=== PATIENT | female | born 1990 | race Caucasian/White ===

== ENCOUNTER 2022-08-02 09:20 | Inpatient (IN) ==
[2022-08-02] MEDS ORDERED: DINOPROSTONE 10 MG INSERT PV ONE (09:40)
[2022-08-02] MEDS ORDERED: OXYTOCIN 30 UNITS/500 ML BAG IV PRN (09:40)
[2022-08-02] MEDS ORDERED: LIDOCAINE 1% LOCAL 20 ML VIAL INFIL PRN (09:40)
[2022-08-02] MEDS: LACTATED RINGER'S 1,000 ML IV PRN ×4 (10:26→23:24)
--- NOTE | 2022-08-02 10:26 | History & Physical Report ---
Date of Service August 02, 2022 Assessment & Plan (1) Elective induction of labor planned: Plan: 31-year-old at 39 weeks and 2 days of gestation scheduled for induction of labor for estimated weight of 3700 g, Vital signs stable afebrile, heart rate reassuring, GBS negative, Plan to admit, monitor, labs, Cervidil for cervical ripening, Patient understands expect during induction, All questions were answered. (2) Third trimester : (3) Term : Admission and Anticipated Discharge Date Admission Date: August 02, 2022 History of Present Illness Primary Care Provider: Katelin Orellana MD Patient is a 31-year-old -0-0-1 at 39 weeks and 2 days of gestation who was scheduled for induction of labor at term due to impending macrosomia. Estimated weight measuring over 90th percentile in second trimester, last ultrasound on July 28 estimated 3700 g infant. She passed glucose tolerance test. Patient denies contractions, leakage of fluid, vaginal bleeding. She reports good movements. Her has been uncomplicated, GBS negative. Denies medical problems. Allergies Allergy/AdvReac Type Severity Reaction Status Date / Time No Known Allergies Allergy Verified 02/07/22 15:34 Home Medications Medication Instructions Recorded Confirmed Type vit 168-iron 27 mg-folic cap PO 02/07/22 02/07/22 History acid 800 mcg-omega3 235 mg capsule (One-A-Day -1) nirmatrelvir 300 mg (150 mg See Rx Instructions PO .COMPLEX 03/15/22 Rx x2)-ritonavir 100 mg tablet,dose #30 tabs pack(EUA) (Paxlovid) Patient History Surgical History S/P wisdom tooth extraction Family History Family/Other Breast cancer Mother Diabetes Denies family history of Ovarian cancer Prostate cancer Myocardial infarction Colorectal cancer Social History Smoking Status: Never smoker Second Hand Exposure: No; Do You Dip or Chew Tobacco: No; Tobacco Cessation Education Requested by Patient: No Hx Alcohol Use: No Hx Substance Use: No Preferred Language: Citizen Of [place] Communication Ability: Effective Pecan Picker Required: No Beliefs That Will Affect Care: None marital status: Current Living Situation: Spouse Current Living Situation Comment: Vijay 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 have: 0 Other Information That Helps Us Care for You: No Feels Safe at Home: Yes Safety Concerns: Feels Safe At This Time Childhood Exposure to Second-Hand Smoke: No Dental Care, Regularly: Yes Physical Activity Frequency: 3-4 Times per Week Seatbelt Use: always Sunscreen Use: Yes Assistive Devices: Glasses INFANT NANNY History Denies history of STDs, including chlamydia, gonorrhea, herpes. Review of Systems as per Subjective / HPI Physical Exam Constitutional: WD/WN, vitals as above Gastrointestinal (Abdomen): normal bowel sounds, soft, nontender, no hepatosplenomegaly (Gravid, Edward 8-9 pounds) Genitourinary: normal external appearance OB Exam Abdomen: + vertex Manual OB Exam: + cervical dilation 1 cm, + cervical effacement 30% and + station -2 OB Exam Monitor Tracing: + external uterine monitor used and + category I Results & Data ([facility]) Vital Signs (Past 12 Hours) Vital Signs Temp Pulse Resp BP 08/02/22 09:54 100 H 117/69 08/02/22 09:30 36.9 C 100 H 18 117/69
[2022-08-02 10:42] LABS: Hematocrit (blood only) 36.9 % (34.1-44.9); Hemoglobin 13.1 g/dl (12.0-16.0); Mean Corpuscular Hemoglobin 33.1 pg (25.0-34.0); Mean Corpuscular Hgb Conc 35.5 g/dL (32.0-36.0); Mean Corpuscular Volume 93.2 fL (80.0-100.0); Mean Platelet Volume 9.7 fL (9.4-12.3); Platelet Count 211 K/uL (130-400); RDW Standard Deviation 41.4 fL (36.4-46.3); Red Blood Count 3.96 M/uL (3.93-5.22); White Blood Count 11.46 K/ul (4.8-10.8)
[2022-08-02] MEDS ORDERED: BUTORPHANOL TARTRATE 1 MG/ML VIAL IV PRN (10:48)
[2022-08-02] MEDS ORDERED: TERBUTALINE SULFATE 1 MG/ML VIAL SQ ONE (13:54)
--- NOTE | 2022-08-02 13:58 | Obstetrical Progress Note ---
Date of Service August 02, 2022 Assessment & Plan Admission and Anticipated Discharge Date Admission Date: August 02, 2022 Subjective Patient is seen. She is standing with monitors on. Had hyperstimulation with Cervidil and it was taken out, ginve IVF bolus Still has ctxs q 0.5 to 1 min, patient feels them all. FHR categ I Terbutaline once Continue to monitor closely. Results & Data ([facility]) Vital Signs (Past 12 Hours) Vital Signs Temp Pulse Resp BP 08/02/22 12:02 97 H 114/66 08/02/22 10:40 94 H 116/68 08/02/22 09:54 100 H 117/69 08/02/22 09:30 36.9 C 100 H 18 117/69
--- NOTE | 2022-08-02 16:40 | Obstetrical Progress Note ---
Date of Service August 02, 2022 Assessment & Plan Admission and Anticipated Discharge Date Admission Date: August 02, 2022 Subjective Patient is reevaluated She ate dinner and started to feel ctxs more painful, 6/10 for 20-30 seconds She iss till smiling with them. VE; 2/ 50%/ -2 FHR categ I [place] ctxs q 2-3 min Offered her Stadol but declined, wants to sleep by herself. Results & Data ([facility]) Vital Signs (Past 12 Hours) Vital Signs Temp Pulse Resp BP 08/02/22 14:54 18 08/02/22 14:54 36.6 C 18 08/02/22 12:02 97 H 114/66 08/02/22 10:40 94 H 116/68 08/02/22 09:54 100 H 117/69 08/02/22 09:30 36.9 C 100 H 18 117/69
--- NOTE | 2022-08-02 20:13 | Obstetrical Progress Note ---
Date of Service August 02, 2022 Assessment & Plan Admission and Anticipated Discharge Date Admission Date: August 02, 2022 Subjective Patient had LOF, Nitrazine +, clear VE; 2-3 cm/ 50%/ -2 FHR categ I [place] ctxs q 2-3 min, patient is still smiling with them, does not need pain meds Continue to monitor closely Results & Data ([facility]) Vital Signs (Past 12 Hours) Vital Signs Temp Pulse Resp BP 08/02/22 20:00 18 08/02/22 20:00 36.7 C 18 08/02/22 19:03 18 08/02/22 19:03 36.7 C 18 08/02/22 19:01 96 H 117/69 08/02/22 14:54 18 08/02/22 14:54 36.6 C 18 08/02/22 12:02 97 H 114/66 08/02/22 10:40 94 H 116/68 08/02/22 09:54 100 H 117/69 08/02/22 09:30 36.9 C 100 H 18 117/69
[2022-08-02] MEDS ORDERED: ePHEDrine sulfate 50 MG/ML AMP ONE (21:04)
[2022-08-02] MEDS ORDERED: SODIUM CHLORIDE 0.9% INJ 10 ML VIAL ONE (21:04)
[2022-08-02] MEDS ORDERED: fentaNYL citrate 100 MCG/2 ML VIAL ONE (21:04)
[2022-08-02] MEDS ORDERED: fentaNYL 2MCG/ML ROPIVACAINE 1.25MG/ML 100 ML BAG EPI ONE (21:05)
[2022-08-02] MEDS ORDERED: LIDOCAINE 2%/EPINEPHRINE 1:200,000 20 ML SDV ONE (21:05)
[2022-08-02] MEDS ORDERED: BUPIVACAINE 0.25% 30 ML VIAL ONE (21:05)
--- NOTE | 2022-08-02 21:43 | Anesthesiology Consultation ---
Date of Service August 02, 2022 Assessment & Plan Chart Review Chart Review: Acceptable Risk for Labor Epidural Consults Requested none History Height/Weight Height: 5 ft 3 in Weight: 65.317 kg Allergies Allergy/AdvReac Type Severity Reaction Status Date / Time No Known Allergies Allergy Verified 08/02/22 11:15 Medications Home Medications Medication Instructions Recorded Confirmed Last Taken vit 168-iron 27 mg-folic cap PO 02/07/22 02/07/22 08/02/22 07:00 acid 800 mcg-omega3 235 mg capsule (One-A-Day -1) Active Medications Generic Name Dose Route Start Last Admin Trade Name Freq PRN Reason Stop Dose Admin Lactated Ringer's 1,000 mls @ 150 mls/hr 08/02/22 09:40 08/02/22 17:03 Lr IV 08/04/22 09:39 150 mls/hr .[id number] PRN Administration L&D Protocol Protocol Past Family History Family History Family/Other Breast cancer Mother Diabetes Denies family history of Ovarian cancer Prostate cancer Myocardial infarction Colorectal cancer Past Surgical History Surgical History S/P wisdom tooth extraction Social History Smoking Status: Never smoker Do You Dip or Chew Tobacco: No Hx Alcohol Use: No Hx Substance Use: No Physical Exam Vital Signs Last Vital Signs Temp 36.7 C 08/02/22 20:00 Pulse 99 H 08/02/22 21:41 Resp 18 08/02/22 20:00 BP 105/58 L 08/02/22 21:41 Pulse Ox 98 08/02/22 21:39 Testing Laboratory Results 08/02/22 10:02 Blood Type O Positive 08/02/22 10:02 Antibody Screen NEGATIVE 08/02/22 10:02
[2022-08-02] MEDS ORDERED: diphenhydrAMINE 50 MG/ML VIAL IV PRN (21:45)
[2022-08-02] MEDS ORDERED: fentaNYL 2MCG/ML ROPIVACAINE 1.25MG/ML 100 ML BAG EPI PRN (21:45)
[2022-08-02] MEDS ORDERED: NALBUPHINE HCL INJ 10 MG/ML AMP IV PRN (21:45)
[2022-08-02] MEDS ORDERED: NALOXONE HCL 1 MG in SODIUM CHLORIDE 0.9% 1000ML 1,000 ML IV PRN (21:45)
[2022-08-02] MEDS ORDERED: NALOXONE HCL 0.4 MG/1 ML VIAL/CARP IV PRN (21:45)
[2022-08-03] MEDS ORDERED: NURSING L&D Epidural Breakthrough Pain Update ONE (00:21)
--- NOTE | 2022-08-03 00:21 | Obstetrical Progress Note ---
Date of Service August 03, 2022 Assessment & Plan Admission and Anticipated Discharge Date Admission Date: August 02, 2022 Subjective Patient is reevaluated She started to feel pain on LLQ with each contractions, pain button is not helping. VEZ; 7-8/ 90%/ 0 FHR categ I [place] ctxs q 2-3 min Continue to monitor closely Call anesthesiologist for pain control Results & Data ([facility]) Vital Signs (Past 12 Hours) Vital Signs Temp Pulse Resp BP Pulse Ox 08/03/22 00:14 87 99 08/03/22 00:09 95 H 100 08/03/22 00:04 86 94/50 L 97 08/02/22 23:59 91 H 98 08/02/22 23:56 84 93 08/02/22 23:54 98 H 98 08/02/22 23:49 95 H 96 08/02/22 23:46 87 107/61 08/02/22 23:44 91 H 95 08/02/22 23:39 90 96 08/02/22 23:28 18 08/02/22 23:28 36.7 C 18 08/02/22 22:16 36.6 C 08/02/22 23:34 89 96 08/02/22 23:31 88 105/56 L 08/02/22 23:29 93 H 96 08/02/22 23:24 91 H 97 08/02/22 23:19 86 96 08/02/22 23:17 88 107/56 L 08/02/22 23:14 88 96 08/02/22 23:09 86 95 08/02/22 23:04 87 96 08/02/22 23:02 83 99/55 L 08/02/22 22:59 92 H 96 08/02/22 22:54 90 96 08/02/22 22:49 85 96 08/02/22 22:46 90 100/57 L 08/02/22 22:44 83 97 08/02/22 22:39 89 96 08/02/22 22:34 92 H 97 08/02/22 22:31 82 106/54 L 08/02/22 22:29 93 H 18 96 08/02/22 22:24 97 H 98 08/02/22 22:19 92 H 97 08/02/22 22:17 92 H 105/55 L 08/02/22 22:14 97 H 97 08/02/22 22:09 90 97 08/02/22 22:04 96 H 97 08/02/22 22:03 92 H 111/55 L 08/02/22 21:59 98 H 18 97 08/02/22 21:54 101 H 97 08/02/22 21:40 18 08/02/22 21:40 18 08/02/22 21:50 18 08/02/22 21:50 18 08/02/22 21:30 18 08/02/22 21:30 18 08/02/22 21:49 97 H 97 08/02/22 21:45 108 H 18 103/53 L 08/02/22 21:44 105 H 98 08/02/22 21:43 99 H 107/58 L 08/02/22 21:41 99 H 105/58 L 08/02/22 21:39 89 107/66 98 08/02/22 21:37 98 H 108/62 08/02/22 21:35 90 18 108/58 L 08/02/22 21:34 99 H 97 08/02/22 21:33 95 H 107/63 08/02/22 21:31 89 111/63 08/02/22 21:29 97 H 98 08/02/22 21:24 88 96 08/02/22 21:19 90 99 08/02/22 21:14 92 H 98 08/02/22 20:00 18 08/02/22 20:00 36.7 C 18 08/02/22 19:03 18 08/02/22 19:03 36.7 C 18 08/02/22 19:01 96 H 117/69 08/02/22 14:54 18 08/02/22 14:54 36.6 C 18
[2022-08-03] MEDS ORDERED: fentaNYL citrate 100 MCG/2 ML VIAL ONE (00:26)
[2022-08-03] MEDS: ePHEDrine sulfate 50 MG/ML AMP IV PRN ×2 (00:35→00:45)
--- NOTE | 2022-08-03 00:40 | Communication Note ---
Date of Service: August 03, 2022 Called for pt c/o pain. Dosed existing epidural with lidocaine 2% with epi 1:200,000 plus 50mcg fentanyl. Ephedrine given for BP support.
[2022-08-03] MEDS ORDERED: OXYTOCIN 30 UNITS/500 ML BAG IV PRN ×2 (04:12→06:46)
[2022-08-03] MEDS ORDERED: MINERAL OIL 30 ML UDC ONE (05:12)
[2022-08-03] MEDS ORDERED: oxyCODONE/ACETAMINOPHEN 5mg/325mg TAB PO PRN (06:46)
[2022-08-03] MEDS ORDERED: BENZOCAINE 20% AER SPR 82.5 GM CAN EXT PRN (06:46)
[2022-08-03] MEDS ORDERED: DIPHTHERIA/TETANUS/PERTUSSIS 0.5 ML SYR/VIAL IM ONE (06:46)
[2022-08-03] MEDS ORDERED: MEASLES, MUMPS & RUBELLA VIRUS VIAL SQ ONE (06:46)
[2022-08-03] MEDS ORDERED: bisacodyL 10 MG SUPP PR PRN (06:46)
[2022-08-03] MEDS ORDERED: ACETAMINOPHEN 325 MG TAB PO PRN (06:46)
[2022-08-03] MEDS ORDERED: HYDROCORTISONE ACETATE 25 MG SUPP PR PRN (06:46)
[2022-08-03] MEDS ORDERED: LIDOCAINE 1% LOCAL 20 ML VIAL INFIL ONE (06:48)
--- NOTE | 2022-08-03 06:57 | Delivery Summary ---
Vaginal Delivery Summary Date of Service August 03, 2022 Vaginal Delivery Summary Patient was found to be fully dilated and desired to push. She pushed for over an hour and was getting exhausted. Head was over with tight hymenal band and perineal skin. The patient asked for episiotomy to assist for the delivery of the head. After right mediolateral episiotomy was opened, the head was delivered without difficulty, the posterior / left shoulder was coming with the left arm flexed with the hand close to the face. It was delivered with minimal traction and the whole baby was delivered without difficulty. She was handed off to the mother where mouth and nose were suctioned, the cord was clamped times x2 and cut at 1 minute delay. The baby was vigorously moving and crying at that point. The vagina and perineum were checked for lacerations. There was a second-degree mediolateral episiotomy on the right side and there was a small first-degree laceration at 2 o'clock position on the lower vagina/hymen area. The rectal exam was done and confirmed second-degree on the episiotomy laceration. The gloves were changed and the episiotomy was repaired with 2-0 Vicryl starting from vaginal mucosa in a continuous fashion bringing the bulbocavernosus muscle together and skin in a subcuticular fashion. Excellent hemostasis was achieved. Then the vaginal laceration at 2:00 o'clock was repaired with another 2-0 Vicryl in a running locked fashion and it was hemostatic. The placenta was found to be in the vagina, delivered spontaneously as intact and complete. The uterus was explored and found to be empty, the lower segment was cleared of all clots and debris's, EBL was 300 mL and the fundus was firm. Mom and baby tolerated procedure well. The baby was a viable female , delivered at 6 AM, Apgars were 8/9 and weight is pending. No complication happened and I was present during whole procedure. At the end of the procedure the sponge needle instrument count was correct x2.
[2022-08-03] MEDS ORDERED: MINERAL OIL LIGHT 10 ML BTL TOP ONE (07:15)
[2022-08-03] MEDS: IBUPROFEN 600 MG TAB PO PRN ×4 (07:26→23:54)
--- NOTE | 2022-08-03 07:40 | Anesthesia Procedure Note ---
Date of Service August 03, 2022 Anesthesia Post Epidural Note Vital Signs Vital Signs: Temp Pulse Resp BP Pulse Ox 36.9 C 101 H 18 103/59 L 98 08/03/22 07:00 08/03/22 07:29 08/03/22 07:00 08/03/22 07:29 08/03/22 06:51 Pain Intensity Bilateral Abdomen: Pain Intensity: 0 Perineal: Pain Intensity: 4 Notes Mental Status: alert / awake / arousable and participated in evaluation Nausea / Vomiting: adequately controlled Pain: adequately controlled Airway Patency, RR, SpO2: stable & adequate BP & HR: stable & adequate Hydration State: stable & adequate Neuraxial Anesthesia: was administered and sensory block is resolving Anesthetic Complications: no major complications apparent and Pt Satisfied with anesthetic care Epidural: Removed without complications and With tip intact
[2022-08-03] MEDS: DOCUSATE SODIUM 100 MG CAP PO SCH ×2 (09:32→20:09)
[2022-08-03] MEDS: FERROUS SULFATE 325 MG TAB PO SCH (09:32)
[2022-08-03] MEDS: PRENATAL VITAMIN 1 TAB PO SCH (09:32)
[2022-08-04] MEDS: IBUPROFEN 600 MG TAB PO PRN ×4 (06:01→20:35)
[2022-08-04 06:12] LABS: Hematocrit (blood only) 27.7 % (34.1-44.9); Hemoglobin 9.8 g/dl (12.0-16.0); Mean Corpuscular Hemoglobin 33.6 pg (25.0-34.0); Mean Corpuscular Hgb Conc 35.4 g/dL (32.0-36.0); Mean Corpuscular Volume 94.9 fL (80.0-100.0); Mean Platelet Volume 9.4 fL (9.4-12.3); Platelet Count 195 K/uL (130-400); RDW Coefficient of Variation 12.2 % (11.5-14.5); RDW Standard Deviation 41.9 fL (36.4-46.3); Red Blood Count 2.92 M/uL (3.93-5.22); White Blood Count 14.04 K/ul (4.8-10.8)
[2022-08-04] MEDS: FERROUS SULFATE 325 MG TAB PO SCH (08:24)
[2022-08-04] MEDS: PRENATAL VITAMIN 1 TAB PO SCH (08:24)
[2022-08-04] MEDS: DOCUSATE SODIUM 100 MG CAP PO SCH ×2 (08:24→20:36)
--- NOTE | 2022-08-04 08:51 | Obstetrical Progress Note ---
Date of Service August 04, 2022 Assessment & Plan Admission and Anticipated Discharge Date Admission Date: August 02, 2022 Subjective Patient is seen and examined. She feels well, no complaints. Desires d/c tonight. Ambulating without dizziness Voiding without difficulty Tolerating regular diet with out N&V Bleeding is minimal No fever/ chills/ CP/ SOB/ N&V/ Leg pain Breast feeding without problems Lab Results 08/02/22 08/02/22 08/02/22 Range/Units 10:02 10:02 Unknown WBC 11.46 H (4.8-10.8) K/ul RBC 3.96 (3.93-5.22) M/uL Hgb 13.1 (12.0-16.0) g/dl Hct 36.9 (34.1-44.9) % MCV 93.2 (80.0-100.0) fL MCH 33.1 (25.0-34.0) pg MCHC 35.5 (32.0-36.0) g/dL RDW Std Deviation 41.4 (36.4-46.3) fL RDW Coeff of Javier 12.0 (11.5-14.5) % Plt Count 211 (130-400) K/uL MPV 9.7 (9.4-12.3) fL SARS-CoV-2, RNA, NAAT NEGATIVE (NEGATIVE) Blood Type O Positive Antibody Screen NEGATIVE 08/04/22 Range/Units 05:48 WBC 14.04 H (4.8-10.8) K/ul RBC 2.92 L (3.93-5.22) M/uL Hgb 9.8 L D (12.0-16.0) g/dl Hct 27.7 L (34.1-44.9) % MCV 94.9 (80.0-100.0) fL MCH 33.6 (25.0-34.0) pg MCHC 35.4 (32.0-36.0) g/dL RDW Std Deviation 41.9 (36.4-46.3) fL RDW Coeff of Javier 12.2 (11.5-14.5) % Plt Count 195 (130-400) K/uL MPV 9.4 (9.4-12.3) fL SARS-CoV-2, RNA, NAAT (NEGATIVE) Blood Type Antibody Screen Vital Signs Temp Pulse Resp BP Pulse Ox O2 Del Method 08/04/22 04:50 36.7 C 99 H 20 97/62 L 96 Room Air 08/04/22 00:10 36.5 C 79 20 105/65 98 Room Air PE: General: Alert, orientedx3, NAD Abd: soft, NT, fundus firm, below Umbilicus Perineum intact, Lochia rubra minimal Ext; NT, no edema AP: 31 yo s/p , ppd# 1 VSS Afebrile doing well Continue routine care All questions were answered Discussed when to call D/C home , f/u in office. Results & Data ([facility]) Vital Signs (Past 12 Hours) Vital Signs Temp Pulse Resp BP Pulse Ox O2 Del Method 08/04/22 04:50 36.7 C 99 H 20 97/62 L 96 Room Air 08/04/22 00:10 36.5 C 79 20 105/65 98 Room Air
[2022-08-04] MEDS ORDERED: bisacodyL 5 MG TABEC PO SCH (20:00)
[2022-08-05] MEDS: IBUPROFEN 600 MG TAB PO PRN (06:27)
[2022-08-05 06:41] LABS: Basophils # (auto) 0.12 K/uL (0-0.2); Basophils % (auto) 0.8 %; Eosinophils # (auto) 0.36 K/uL (0-0.50); Eosinophils % (auto) 2.4 %; Hematocrit (blood only) 30.2 % (34.1-44.9); Hemoglobin 10.6 g/dl (12.0-16.0); Immature Granulocytes # (auto) 0.09 K/uL (0.00-0.02); Immature Granulocytes % (auto) 0.6 %; Lymphocytes # (auto) 2.11 K/uL (1.2-3.4); Lymphocytes % (auto) 14.2 %; Mean Corpuscular Hemoglobin 33.4 pg (25.0-34.0); Mean Corpuscular Hgb Conc 35.1 g/dL (32.0-36.0); Mean Corpuscular Volume 95.3 fL (80.0-100.0); Mean Platelet Volume 9.2 fL (9.4-12.3); Monocytes # (auto) 1.01 K/uL (0.24-0.82); Monocytes % (auto) 6.8 %; Neutrophils # (auto) 11.17 K/uL (1.4-6.5); Neutrophils % (auto) 75.2 %; Platelet Count 224 K/uL (130-400); RDW Coefficient of Variation 12.1 % (11.5-14.5); RDW Standard Deviation 42.7 fL (36.4-46.3); Red Blood Count 3.17 M/uL (3.93-5.22); White Blood Count 14.86 K/ul (4.8-10.8)
[2022-08-05] MEDS: PRENATAL VITAMIN 1 TAB PO SCH (07:55)
[2022-08-05] MEDS: FERROUS SULFATE 325 MG TAB PO SCH (07:55)
[2022-08-05] MEDS: DOCUSATE SODIUM 100 MG CAP PO SCH (07:56)
== END 2022-08-05 12:00 | disposition home or self-care (01) | DRG 807 ==
LOC: 4S1 09:20 → 4E1 08-03 09:56

== ENCOUNTER 2025-05-09 19:52 | Inpatient (IN) ==
[2025-05-09] MEDS ORDERED: CALCIUM CARBONATE 500 MG CHEWABLE TAB PO PRN (20:11)
[2025-05-09] MEDS ORDERED: OXYTOCIN 30 UNITS/NSS 30 UNITS/500 ML BAG IV PRN (20:11)
[2025-05-09] MEDS ORDERED: LIDOCAINE 1% LOCAL 20 ML VIAL INFIL PRN (20:11)
[2025-05-09] MEDS ORDERED: ACETAMINOPHEN 325 MG TAB PO PRN (20:11)
--- NOTE | 2025-05-09 20:34 | History & Physical Report ---
Date of Service May 09, 2025 Assessment & Plan (1) with 39 completed weeks gestation: Plan: Admit in labor Augment contractions with Oxytocin Epidural planned anticipate normal delivery History of Present Illness Chief Complaint: marissa cullen Primary Care Provider: Katelin Doe MD 34 F P1001 at 39.6 weeks presents to L&D with SROM at 7:15 PM tonight clear fluid with mild contractions. GBS is negative. PNC has been unremarkable. Allergies Allergy/AdvReac Type Severity Reaction Status Date / Time No Known Allergies Allergy Verified 11/28/24 14:42 Home Medications Medication Instructions Recorded Confirmed Type vits no.124-ferrous fum 1 tab PO DAILY@08 #90 tabs 08/04/22 05/08/25 Rx 27 mg iron-folic acid 800 mcg tablet ( Vitamin) ferrous sulfate 325 mg (65 mg 325 mg PO DAILY 05/08/25 05/08/25 History iron) tablet (iron) Patient History Medical History Third trimester Surgical History S/P wisdom tooth extraction Family History Family/Other Breast cancer Mother Diabetes Denies family history of Ovarian cancer Prostate cancer Myocardial infarction Colorectal cancer Social History Smoking Status: Never smoker Second Hand Exposure: No; Do You Dip or Chew Tobacco: No; Hx Alcohol Use: No Hx Substance Use: No Preferred Language: [place] Communication Ability: Effective Prototype Fabricator Required: No Beliefs That Will Affect Care: None marital status: Current Living Situation: Spouse and Family Current Living Situation Comment: Vijay and daughter 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 have: 0 Feels Safe at Home: Yes Childhood Exposure to Second-Hand Smoke: No Dental Care, Regularly: Yes Physical Activity Frequency: 3-4 Times per Week Seatbelt Use: always Sunscreen Use: Yes Assistive Devices: Glasses OB History x1 OCCUPATIONAL THERAPIST ASSISTANTS History neg Review of Systems All systems reviewed & are unremarkable except as noted in HPI & below Physical Exam Constitutional: WD/WN, vitals as above Eyes: PERRL, conjunctivae normal, anicteric sclerae Respiratory: normal respiratory effort Cardiovascular: Rate/Rhythm: regular rate and regular rhythm Gastrointestinal (Abdomen): Inspection/Auscultation: abdomen normal to inspection Musculoskeletal: Extremities: extremities normal to inspection Skin: no rashes, warm and dry Neurologic: patellar DTR's 2+ bilat, sensation intact Psychiatric: A+Ox3, euthymic affect Genitourinary: no vaginal lesions, no adnexal mass OB Exam Abdomen: + fundal height and + vertex Manual OB Exam: + cervical dilation 3 cm, + cervical effacement 50%, + station -2 and + amniotic fluid clear OB Exam Monitor Tracing: + external FHT monitor used, + external uterine monitor used, + category I and + normal FHT variability EFW 7-8 lbs. Results & Data Vital Signs (Past 12 Hours) Vital Signs Pulse BP Pulse Ox 05/09/25 20:25 95 H 97 05/09/25 20:20 92 H 97 05/09/25 20:15 95 H 96 05/09/25 20:10 91 H 96 05/09/25 20:06 96 H 120/66 05/09/25 20:05 94 H 96 Code Status & VTE Plan VTE Prophylaxis Plan VTE Prophylaxis will be ordered: No Monitoring External Monitor Cat 1
[2025-05-09] MEDS: LACTATED RINGER'S 1,000 ML IV PRN (21:35)
[2025-05-09] MEDS: OXYTOCIN 30 UNITS/NSS 30 UNITS/500 ML BAG IV PRN (22:00)
[2025-05-09 22:24] LABS: Hematocrit (blood only) 37.9 % (37.0-47.0); Hemoglobin 13.2 g/dl (12.0-16.0); Mean Corpuscular Hemoglobin 31.9 pg (25.0-34.0); Mean Corpuscular Volume 91.5 fL (80.0-100.0); Platelet Count 248 K/uL (130-400); RDW Standard Deviation 43.4 fL (36.4-46.3); Red Blood Count 4.14 M/uL (4.20-5.40); White Blood Count 10.41 K/ul (4.8-10.8)
[2025-05-10] MEDS ORDERED: BUPIVACAINE 0.25% PF 30 ML VIAL ONE (02:30)
[2025-05-10] MEDS ORDERED: LIDOCAINE 2%/EPINEPHRINE 1:200,000 20 ML PF ONE (02:30)
[2025-05-10] MEDS ORDERED: LIDOCAINE 2%/EPINEPHRINE 1:200,000 20 ML PF EPI STA (02:42)
[2025-05-10] MEDS ORDERED: NALOXONE HCL 0.4 MG/1 ML VIAL/CARP IV PRN (02:42)
[2025-05-10] MEDS ORDERED: NALBUPHINE HCL INJ 10 MG/ML AMP IV PRN (02:42)
[2025-05-10] MEDS ORDERED: BUPIVACAINE 0.25% PF 30 ML VIAL EPI PRN (02:42)
[2025-05-10] MEDS ORDERED: NALOXONE HCL 1 MG in SODIUM CHLORIDE 0.9% 1,000 ML IV PRN (02:42)
[2025-05-10] MEDS ORDERED: SODIUM CHLORIDE 0.9% PF INJ 10 ML VIAL EPI STA (02:42)
[2025-05-10] MEDS ORDERED: ONDANSETRON INJ 2 MG/ML 2 ML VIAL IV PRN (02:42)
[2025-05-10] MEDS ORDERED: ROPIVACAINE 0.5% PF 5 MG/ML 20 ML VIAL EPI PRN (02:42)
[2025-05-10] MEDS ORDERED: BUPIVACAINE 0.25% PF 30 ML VIAL EPI STA (02:42)
[2025-05-10] MEDS ORDERED: SODIUM CHLORIDE 0.9% PF INJ 10 ML VIAL EPI PRN (02:42)
[2025-05-10] MEDS ORDERED: diphenhydrAMINE 50 MG/ML VIAL IV PRN (02:42)
--- NOTE | 2025-05-10 02:44 | Anesthesiology Consultation ---
Date of Service May 10, 2025 Assessment & Plan (1) Encounter for pre-operative examination: Chart Review Chart Review: Patient NOT seen in Pre Admission Testing and Acceptable Risk for Labor Epidural Consults Requested none History Height/Weight Height: 5 ft 3 in Weight: 68.039 kg Allergies Allergy/AdvReac Type Severity Reaction Status Date / Time No Known Allergies Allergy Verified 05/09/25 21:57 Medications Home Medications Medication Instructions Recorded Confirmed Last Taken vits no.124-ferrous fum 1 tab PO DAILY@08 #90 tabs 08/04/22 05/09/25 05/09/25 27 mg iron-folic acid 800 mcg tablet ( Vitamin) ferrous sulfate 325 mg (65 mg 325 mg PO DAILY 05/08/25 05/08/25 05/07/25 iron) tablet (iron) Active Medications Generic Name Dose Route Start Last Admin Trade Name Freq PRN Reason Stop Dose Admin Lactated Ringer's 1,000 mls @ 125 mls/hr 05/09/25 20:11 05/09/25 21:35 Lr IV 05/11/25 20:10 125 mls/hr .Q8H PRN Administration L&D Protocol Protocol Oxytocin 30 units in 500 mls @ 3 mls/hr 05/09/25 20:27 05/09/25 22:30 Pitocin 30 Units/Nss IV 05/11/25 20:26 0.18 units/hr .Q24H PRN 3 mls/hr Labor Induction/Augmentation Titration Protocol 0.18 UNITS/HR Past Medical History Medical History (Updated 05/10/25 @ 02:44 by Ramsey Parnell MD) Encounter for pre-operative examination Third trimester Exercise / Class Metabolic Activity II 4-5 Yardwork/Stairs/Walk up hill Past Family History Family History Family/Other Breast cancer Mother Diabetes Denies family history of Ovarian cancer Prostate cancer Myocardial infarction Colorectal cancer Past Surgical History Surgical History S/P wisdom tooth extraction Past Anesthesia History No Hx of Anesthesia Complications and No Family Hx of Anesthesia Complications Social History Smoking Status: Never smoker Do You Dip or Chew Tobacco: No Hx Alcohol Use: No alcohol intake frequency: holidays/special occasions only Hx Substance Use: No substance use type: does not use Physical Exam Vital Signs Last Vital Signs Temp 36.8 C 05/10/25 00:00 Pulse 86 05/10/25 03:20 Resp 20 05/09/25 20:36 BP 134/78 05/10/25 03:19 Pulse Ox 98 05/10/25 03:20 Testing Laboratory Results 05/09/25 20:53
[2025-05-10] MEDS: fentANYL 2 MCG/ML BUPIVacaine 0.125%-NSS 100ML BAG EPI PRN (03:33)
[2025-05-10] MEDS: fentANYL 2 MCG/ML BUPIVacaine 0.125%-NSS 100ML BAG ONE (12:10)
[2025-05-10] MEDS: LIDOCAINE 2% MPF LOCAL 5 ML VIAL EPI PRN (13:42)
--- NOTE | 2025-05-10 13:51 | Anesthesia Procedure Note ---
Date of Service May 10, 2025 Anesthesia Epidural Re-Dose Vital Signs Temp Pulse Resp BP Pulse Ox 37.1 C 87 18 117/69 98 05/10/25 11:05 05/10/25 13:47 05/10/25 13:30 05/10/25 13:47 05/10/25 13:45 Notes Pain Intensity: 2 Dilatation (cm): 5.5 Effacement (%): 80 Called by nursing to evaluate epidural as the patient is having increased pain. The epidural was re-dosed with the following medications (all medications via epidural route) after negative aspiration of the epidural catheter for CSF/HEME. level to ice t11 dosed with 5ml 2% lidocaine After Epidural Re-Dose Mental Status: alert / awake / arousable and participated in evaluation Pain: improving with treatment Airway Patency, RR, SpO2: stable & adequate BP & HR: stable & adequate
[2025-05-10] MEDS ORDERED: HYDROCORTISONE ACETATE 25 MG SUPP PR PRN (14:47)
[2025-05-10] MEDS ORDERED: OXYTOCIN 30 UNITS/NSS 30 UNITS/500 ML BAG IV PRN (14:47)
[2025-05-10] MEDS ORDERED: DIPHTHER/TETAN/PERTUS Vaccine (Tdap, Adol/Adult) 0.5mL IM ONE (14:47)
[2025-05-10] MEDS: LIDOCAINE 2%/EPINEPHRINE 1:200,000 20 ML PF ONE (14:56)
[2025-05-10] MEDS: SODIUM CHLORIDE 0.9% PF INJ 10 ML VIAL ONE (14:56)
--- NOTE | 2025-05-10 14:58 | Anesthesia Procedure Note ---
Date of Service May 10, 2025 Anesthesia Post Epidural Note Vital Signs Vital Signs: Temp Pulse Resp BP Pulse Ox 37.1 C 90 20 122/58 L 94 05/10/25 11:05 05/10/25 14:45 05/10/25 14:45 05/10/25 14:45 05/10/25 14:28 Pain Intensity Bilateral Abdomen: Pain Intensity: 2 Notes Mental Status: alert / awake / arousable and participated in evaluation Nausea / Vomiting: adequately controlled Pain: adequately controlled Airway Patency, RR, SpO2: stable & adequate BP & HR: stable & adequate Hydration State: stable & adequate Neuraxial Anesthesia: was administered and sensory block is resolving Anesthetic Complications: no major complications apparent and Pt Satisfied with anesthetic care Epidural: Removed without complications and With tip intact
--- NOTE | 2025-05-10 15:02 | Delivery Summary ---
Vaginal Delivery Summary Date of Service May 10, 2025 Vaginal Delivery Summary live female JUSTIN over intact perineum with delayed cord clamping and Apgars 8/9 weight pending. Cord blood obtained followed by spontaneous delivery of intact placenta noted to have an accessory lobe. Small tear on right posterior vaginal wall repaired with one figure of eight suture 3/0 Vicryl. QBL 205 ml. Final sponge, needle and instrument count are correct. Mom and baby stable.
[2025-05-10] MEDS: BENZOCAINE 20% SPRY 85 APPLN/85 GM CAN EXT PRN (15:40)
[2025-05-10] MEDS: IBUPROFEN 600 MG TAB PO PRN (15:40)
[2025-05-10] MEDS: DOCUSATE SODIUM 100 MG CAP PO SCH (20:01)
[2025-05-10] MEDS: ACETAMINOPHEN 325 MG TAB PO PRN (23:09)
[2025-05-11 06:08] LABS: Hematocrit (blood only) 32.1 % (37.0-47.0); Hemoglobin 11.5 g/dl (12.0-16.0); Mean Corpuscular Hemoglobin 33.0 pg (25.0-34.0); Mean Corpuscular Volume 92.0 fL (80.0-100.0); Platelet Count 199 K/uL (130-400); RDW Standard Deviation 42.6 fL (36.4-46.3); Red Blood Count 3.49 M/uL (4.20-5.40); White Blood Count 10.35 K/ul (4.8-10.8)
[2025-05-11] MEDS ORDERED: PRENATAL VITAMIN 1 TAB PO SCH (08:00)
[2025-05-11] MEDS: PRENATAL VITAMIN 1 TAB PO SCH (08:04)
--- NOTE | 2025-05-11 09:49 | Obstetrical Progress Note ---
Date of Service May 11, 2025 Assessment & Plan Admission and Anticipated Discharge Date Admission Date: May 09, 2025 Subjective Patient is seen and examined. She feels well, no complaints. Ambulating without dizziness Voiding without difficulty Tolerating regular diet with out N&V Bleeding is minimal No fever/ chills/ CP/ SOB/ N&V/ Leg pain Breast feeding without problems Vital Signs Temp Pulse Resp BP Pulse Ox O2 Del Method 05/11/25 07:19 36.5 C 76 18 121/75 98 Room Air 05/11/25 02:35 36.8 C 76 18 116/69 98 Room Air 05/11/25 00:14 36.4 C L 79 18 112/71 97 Room Air Lab Results 05/09/25 05/11/25 Range/Units 20:53 05:43 WBC 10.41 10.35 (4.8-10.8) K/ul RBC 4.14 L 3.49 L (4.20-5.40) M/uL Hgb 13.2 11.5 L (12.0-16.0) g/dl Hct 37.9 32.1 L (37.0-47.0) % MCV 91.5 92.0 (80.0-100.0) fL MCH 31.9 33.0 (25.0-34.0) pg MCHC 34.8 35.8 (32.0-36.0) g/dL RDW Std Deviation 43.4 42.6 (36.4-46.3) fL RDW Coeff of Javier 12.8 12.7 (11.5-14.5) % Plt Count 248 199 (130-400) K/uL MPV 10.4 9.9 (9.4-12.4) fL Treponema pallidum Ab Negative (Negative) PE: General: Alert, orientedx3, NAD Abd: soft, NT, fundus firm, below Umbilicus Perineum intact, Lochia rubra minimal Ext; NT, no edema AP: 34 yo s/p , ppd# 1 VSS Afebrile doing well Continue routine care All questions were answered D/C home tomorrow Results & Data Vital Signs (Past 12 Hours) Vital Signs Temp Pulse Resp BP Pulse Ox O2 Del Method 05/11/25 07:19 36.5 C 76 18 121/75 98 Room Air 05/11/25 02:35 36.8 C 76 18 116/69 98 Room Air 05/11/25 00:14 36.4 C L 79 18 112/71 97 Room Air
[2025-05-11 21:02] VITALS: O2SAT 97
[2025-05-11 23:09] VITALS: RESP 18
[2025-05-12 07:15] VITALS: BP 117/73; PULSE 69; TEMP 97.5
[2025-05-12 07:31] LABS: Hematocrit (blood only) 34.5 % (37.0-47.0); Hemoglobin 11.7 g/dl (12.0-16.0)
--- NOTE | 2025-05-12 08:18 | Obstetrical Progress Note ---
Date of Service May 12, 2025 Assessment & Plan Admission and Anticipated Discharge Date Admission Date: May 09, 2025 Subjective abdomen soft and non tender no calf tenderness ambulating well vaginal bleeding scant hgb 11.7 Results & Data Vital Signs (Past 12 Hours) Vital Signs Temp Pulse Resp BP Pulse Ox O2 Del Method 05/12/25 07:14 36.4 C L 69 18 117/73 97 Room Air 05/11/25 23:07 36.3 C L 72 18 115/74 97 Room Air
== END 2025-05-12 10:20 | disposition home or self-care (01) | DRG 807 ==
LOC: OPB 19:52 → 4S1 19:54 → 4E2 05-10 17:54